=== PATIENT | female | born 1990 | race Hispanic/Latino ===

== ENCOUNTER 2017-08-10 01:56 | Emergency (ER) | payer OTHER ==
[2017-08-10 02:14] VITALS: BP 138/60; PULSE 96; RESP 16; TEMP 98.6; O2SAT 98
[2017-08-10] MEDS ORDERED: Oxycodone/Acetaminophen 5/325 mg Tab PO STA ×2 (02:22→02:27)
[2017-08-10] MEDS ORDERED: Oxycodone/Acetaminophen 5/325 mg Tab ONE (02:48)
--- NOTE | 2017-08-10 02:48 | ED PDOC ---
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 She was seen at [facility] in [place]. Pt states she was diagnosed with radial fracture and a hard cast was placed. Pt was given 16 mg of morphine and a percocet then. Pt was given tramadol for home but states it is not helping. Past Medical History Reviewed: Historical Data, Nursing Documentation, Vital Signs Vital Signs: Last Vital Signs Temp 98.6 F 08/10/17 02:10 Pulse 96 H 08/10/17 02:10 Resp 16 08/10/17 02:10 BP 138/60 08/10/17 02:10 Pulse Ox 98 08/10/17 02:10 - Medical History PMH: No Chronic Diseases - Surgical History Surgical History: No Surg Hx - Family History Family History: States: No Known Family Hx - Home Medications Home Medications: Ambulatory Orders Medication Instructions Recorded oxyCODONE/Acetaminophen [Percocet 1 ea PO Q6H PRN #15 tab 08/10/17 5/325 mg Tab] - Allergies Allergies/Adverse Reactions: Allergies Allergy/AdvReac Type Severity Reaction Status Date / Time Penicillins Allergy RASH Verified 08/10/17 02:10 Review of Systems ROS Statement: Except As Marked, All Systems Reviewed And Found Negative Musculoskeletal: Positive for: Arm Pain (Right) Physical Exam - Reviewed Nursing Documentation Reviewed: Yes Vital Signs Reviewed: Yes - Physical Exam Appears: Positive for: Well, Non-toxic, No Acute Distress Head Exam: Positive for: ATRAUMATIC, NORMAL INSPECTION, NORMOCEPHALIC Skin: Positive for: Normal Color, Warm, DRY Eye Exam: Positive for: Normal appearance ENT: Positive for: Normal ENT Inspection Neck: Positive for: Normal, Painless ROM Respiratory: Negative for: Accessory Muscle Use, Respiratory Distress Back: Positive for: Normal Inspection Extremity: Positive for: Capillary Refill (< 3 seconds ), Other (There is finger room between cast and arm ). Negative for: Normal ROM Neurologic/Psych: Positive for: Alert, Oriented - ECG O2 Sat by Pulse Oximetry: 98 Medical Decision Making Medical Decision Making: Pain medications given in ER. Pt reports feeling better after percocet in ER. Disposition - Clinical Impression Clinical Impression: Wrist fracture - Patient ED Disposition Is Patient to be Admitted: No Counseled Patient/Family Regarding: Diagnosis, Need For Followup, Rx Given - Disposition Referrals: Shanique Burgess MD [Staff Provider] - Disposition: Routine/Home Disposition Time: 04:07 Condition: GOOD Prescriptions: oxyCODONE/Acetaminophen [Percocet 5/325 mg Tab] 1 ea PO Q6H PRN #15 tab PRN Reason: Pain, Severe (8-10) Instructions: Elbow Fracture in Adults (ED) Forms: [employer] ([place] Citizen)
== END 2017-08-10 04:39 | disposition home or self-care (01) ==
LOC: H.ER 01:56
DX: S52.501A Unspecified fracture of the lower end of right radius, initial encounter for closed fracture (principal); V00.121A Fall from non-in-line roller-skates, initial encounter; Y93.51 Activity, roller skating (inline) and skateboarding